=== PATIENT | female | born 1975 | race Caucasian/White ===

== ENCOUNTER 2021-01-30 20:42 | Emergency (ER) | payer OTHER ==
[~2021-01-30 20:42] MED LIST: CLARITIN-D 121 EACH PO; FLONASE ALLER15.8 ML; KEFLEX500 MG PO; LEVAQUIN500 MG PO; OFLOXACIN5 M1 EARLF; PREDNISONE 20MG20 MG PO; PRILOSEC20 MG PO; PROMETHAZINE V120 M2 PO; ZYRTEC10 MG PO
[2021-01-30 21:30] LABS: BASOPHIL 0.9 % (0-2); EOSINOPHIL 3.6 % (0-5); HCT 46.6 % (37.0-47.0); LYMPHOCYTE 33.6 % (15-48); MCH 31.6 pg (25.0-31.0); MCHC 32.2 g/dL (32.0-36.0); MCV 98.3 fL (78.0-100.0); MONOCYTE 4.3 % (0-12); MPV 9.2 fL (6.0-9.5); NEUTROPHIL 57.1 % (41-80); NRBC 0; PLT 502 K/uL (150-400); RBC 4.74 M/uL (4.20-5.40); RDW 14.2 % (11.5-14.0); WBC 11.1 K/uL (4.0-10.5)
[2021-01-30 21:33] LABS: BILIRUBIN NEGATIVE (NEGATIVE); BLOOD TRACE-LYSED Ery/uL (NEGATIVE); CLARITY CLEAR (CLEAR); COLOR YELLOW (YELLOW); GLUCOSE (U) NORMAL (NORMAL); LEUKOCYTES NEGATIVE Leu/uL (NEGATIVE); NITRITE NEGATIVE (NEGATIVE); PROTEIN NEGATIVE (NEGATIVE); SPECIFIC GRAVITY <=1.005 (1.001-1.030); UROBILINOGEN 0.2 mg/dL (0.2-1.0)
[2021-01-30 21:36] LABS: BACTERIA TRACE; URINARY RBC RARE
[2021-01-30 21:37] LABS: AMPHETAMINES NEGATIVE (NEGATIVE); BARBITURATES NEGATIVE (NEGATIVE); ECSTASY (MDMA) NEGATIVE (NEGATIVE); MARIJUANA (THC) NEGATIVE (NEGATIVE); METHADONE NEGATIVE (NEGATIVE); OPIATES NEGATIVE (NEGATIVE); OXYCODONE NEGATIVE (NEGATIVE)
[2021-01-30 22:00] LABS: ALBUMIN 4.1 g/dL (3.4-5.0); ALKALINE PHOSHATASE 105 U/L (46-116); ALT 38 U/L (14-59); AST 32 U/L (15-37); BILIRUBIN - TOTAL 0.4 mg/dL (0.2-1.0); BUN 5 mg/dL (7-18); BUN/CREAT RATIO (CALC) 7.8 RATIO; CHLORIDE 102 mmol/L (98-107); CO2 (BICARBONATE) 25 mmol/L (21-32); CREATININE 0.64 mg/dL (0.51-0.95); GLOBULIN (CALCULATION) 3.6 g/dL; GLUCOSE 92 mg/dL (74-106); POTASSIUM 4.6 mmol/L (3.5-5.1); TOTAL PROTEIN 7.7 g/dL (6.4-8.2)
[2021-01-30 22:02] LABS: ACETAMINOPHEN (TYLENOL) < 2.0 ug/mL (10.0-30.0)
== END 2021-01-31 03:05 ==
LOC: FER 20:42
PROVIDERS: Internal Medicine
DX: R45.851 Suicidal ideations (principal); F32.A Depression, unspecified; Z88.6 Allergy status to analgesic agent; Z20.822 Contact with and (suspected) exposure to COVID-19
CPT/HCPCS: 36415; 80053; 80305; 81001; 85025; 99285; G0480; U0002

== ENCOUNTER 2021-06-03 02:28 | Emergency (ER) | payer SELFPAY ==
[2021-06-03 03:41] LABS: BASOPHIL 0.6 % (0-2); EOSINOPHIL 0.6 % (0-5); HCT 44.6 % (37.0-47.0); HGB 14.6 g/dl (12.5-16.0); LYMPHOCYTE 20.8 % (15-48); MCHC 32.7 g/dL (32.0-36.0); MCV 97.8 fL (78.0-100.0); MONOCYTE 6.1 % (0-12); MPV 9.3 fL (6.0-9.5); NEUTROPHIL 70.9 % (41-80); NRBC 0; PLT 471 K/uL (150-400); RBC 4.56 M/uL (4.20-5.40); RDW 15.4 % (11.5-14.0)
[2021-06-03 03:55] LABS: BILIRUBIN NEGATIVE (NEGATIVE); BLOOD 3+ Ery/uL (NEGATIVE); COLOR YELLOW (YELLOW); GLUCOSE (U) 1+ mg/dL (NORMAL); LEUKOCYTES TRACE Leu/uL (NEGATIVE); NITRITE NEGATIVE (NEGATIVE); PROTEIN 1+ mg/dL (NEGATIVE); SPECIFIC GRAVITY 1.025 (1.001-1.030)
[2021-06-03 04:01] LABS: ALBUMIN 3.7 g/dL (3.4-5.0); BILIRUBIN - TOTAL 0.2 mg/dL (0.2-1.0); BUN/CREAT RATIO (CALC) 6.7 RATIO; CREATININE 0.6 mg/dL (0.51-0.95); GLOBULIN (CALCULATION) 3.5 g/dL; POTASSIUM 2.8 mmol/L (3.5-5.1); TOTAL PROTEIN 7.2 g/dL (6.4-8.2)
[2021-06-03 04:05] LABS: AMPHETAMINES NEGATIVE (NEGATIVE); BARBITURATES NEGATIVE (NEGATIVE); ECSTASY (MDMA) NEGATIVE (NEGATIVE); MARIJUANA (THC) NEGATIVE (NEGATIVE); METHADONE NEGATIVE (NEGATIVE); OPIATES NEGATIVE (NEGATIVE); OXYCODONE NEGATIVE (NEGATIVE)
[2021-06-03 04:06] LABS: CLARITY HAZY (CLEAR)
[2021-06-03 04:11] LABS: BACTERIA TRACE; URINARY RBC TNTC
[2021-06-03 05:46] LABS: CORONAVIRUS 2019 SARS-COV-2 NEGATIVE (NEGATIVE); INFLUENZA A NAA NEGATIVE (NEGATIVE)
[2021-06-03] MEDS ORDERED: LIBRIUM25 MG PO (09:46)
[2021-06-03] MEDS ORDERED: DAILY VALUE1 EACH PO (09:46)
== END 2021-06-03 11:19 | disposition home or self-care (01) ==
LOC: FER 02:28
PROVIDERS: Internal Medicine
DX: F10.129 Alcohol abuse with intoxication, unspecified (principal); E87.6 Hypokalemia; F17.210 Nicotine dependence, cigarettes, uncomplicated; Z88.6 Allergy status to analgesic agent; Z20.822 Contact with and (suspected) exposure to COVID-19; Z28.311 Partially vaccinated for COVID-19
CPT/HCPCS: 36415; 71045; 80053; 80305; 81001; 85025; 96372; G0480; J2060; J2405; J2560; J3360; J3475; J3480; J7030; J7050; U0002